=== PATIENT | male | born 1995 | race Caucasian/White ===

== ENCOUNTER 2023-06-19 02:28 | Emergency (ER) | payer BC ==
[~2023-06-19] VITALS: Ht 172.7 cm; Wt 95.3 kg
[2023-06-19] MEDS: IV NS 0.9% 1,000 ML BAG IV ONE ×2 (03:39→05:14)
[2023-06-19] MEDS ORDERED: LORAZEPAM INJ 2 MG/ML VIAL ONE (03:40)
[2023-06-19] MEDS: LORAZEPAM INJ 2 MG/ML VIAL IV ONE (03:47)
[2023-06-19 05:15] VITALS: BP 134/106; TEMP 98.8; O2SAT 99
== END 2023-06-19 05:16 | disposition home or self-care (01) ==
LOC: ER 02:34
DX: F41.0 Panic disorder [episodic paroxysmal anxiety] (principal); F14.90 Cocaine use, unspecified, uncomplicated; F10.90 Alcohol use, unspecified, uncomplicated; Y90.0 Blood alcohol level of less than 20 mg/100 ml
CPT/HCPCS: 99283; 96374; 96361; 93005; J2060; J7030